=== PATIENT | male | born 1950 | race Caucasian/White ===

== ENCOUNTER → 2020-10-18 | Outpatient (CLI) | payer MEDICARE | LOC: M LABSMTC 09:38 | DX: Z01.812 Encounter for preprocedural laboratory examination (principal); Z20.822 Contact with and (suspected) exposure to COVID-19 ==

== ENCOUNTER 2022-10-31 21:25 | Inpatient (IN) | payer MEDICARE ==
[~2022-10-31] VITALS: Ht 185.4 cm; Wt 120.3 kg
[2022-10-31] MEDS ORDERED: KETOROLAC 30 MG/ML 1ML VIAL IV ONE (22:20)
[2022-10-31] MEDS ORDERED: ONDANSETRON 4MG 2ML VIAL IV ONE (22:20)
[2022-10-31] MEDS ORDERED: ACETAMINOPHEN 325 MG TAB PO ONE (22:20)
[2022-10-31] MEDS ORDERED: ISOVUE-370 76% 100ML VIAL As Ordered ONE (22:39)
[2022-10-31 22:47] LABS: BASO % 0.2 % (0.0-1.0); EOS % 0.2 % (0.0-3.0); HEMATOCRIT 35.5 % (42.0-52.0); HEMOGLOBIN 12.7 g/dl (13.5-17.5); LYMPH % 7.7 % (24.0-44.0); MEAN CORPUSCULAR HEMOGLOBIN 32.1 pg (27.0-33.0); MEAN CORPUSCULAR HGB CONC 35.8 g/dl (32.0-36.5); MEAN CORPUSCULAR VOLUME 89.6 fl (80.0-96.0); MONO # 1.1 10^3/uL (0.0-0.8); MONO % 8.4 % (2.0-8.0); NEUTROPHILS # 10.4 10^3/uL (1.5-8.5); PLATELET COUNT, AUTOMATED 223 10^3/uL (150-450); RED BLOOD COUNT 3.96 10^6/uL (4.30-6.10); WHITE BLOOD COUNT 12.5 10^3/uL (4.0-10.0)
[2022-10-31 23:04] LABS: INR 1.04; PROTHROMBIN TIME 13.8 SECONDS (12.5-14.5)
[2022-10-31 23:05] LABS: CK-MB VALUE MASS < 1.0 NG/ML (<3.6)
[2022-10-31 23:06] LABS: LIPASE 23 U/L (12-53)
[2022-10-31 23:07] LABS: AMYLASE 45 U/L (30-118); CPK CREATINE PHOSPHOKINASE 146 U/L (46-171); MB/CK RELATIVE INDEX 0.68 (< OR =4)
[2022-10-31 23:08] LABS: ALBUMIN 3.5 G/DL (3.2-5.2); ALKALINE PHOSPHATASE 58 U/L (46-116); ALT/SGPT 19 U/L (7.0-40); AST/SGOT 13 U/L (<34); BILIRUBIN,DIRECT 0.4 MG/DL (<0.4); BILIRUBIN,TOTAL 1.2 MG/DL (0.3-1.2); BLOOD UREA NITROGEN 21 MG/DL (9-23); CALCIUM LEVEL 7.4 MG/DL (8.3-10.6); CARBON DIOXIDE LEVEL 22 MMOL/L (20-31); CHLORIDE LEVEL 102 MMOL/L (98-107); CREATININE FOR GFR 1.33 MG/DL (0.70-1.30); GLOMERULAR FILTRATION RATE 56.4 (>42); GLUCOSE, FASTING 105 MG/DL (74-106); POTASSIUM SERUM 3.9 MMOL/L (3.5-5.1); SODIUM LEVEL 133 MMOL/L (136-145); TOTAL PROTEIN 6.4 G/DL (5.7-8.2)
[2022-10-31] MEDS ORDERED: MORPHINE 4 MG/ML 1ML VIAL IV ONE (23:25)
[2022-11-01] VITALS (11 sets, daily range): BP systolic 106–139; BP diastolic 60–81; TEMP 97.3–98.2; O2SAT 90–97
[2022-11-01] MEDS ORDERED: PIPERACILLIN/TAZOBACTAM SOD 4.5 GM in D5W MINI-BAG PLUS 50 ML IV ONE (00:05)
[2022-11-01] MEDS ORDERED: NS 1,000 ML IV ONE (00:05)
[2022-11-01] MEDS ORDERED: LR 1,000 ML IV SCH ×2 (01:25→10:55)
[2022-11-01] MEDS ORDERED: MORPHINE 4 MG/ML 1ML VIAL IV PRN (01:25)
[2022-11-01] MEDS ORDERED: ACETAMINOPHEN TAB 650MG DOSE (2X325MG) PO PRN (01:25)
[2022-11-01] MEDS ORDERED: ONDANSETRON 4MG 2ML VIAL IV PRN ×2 (01:25→10:55)
[2022-11-01] MEDS ORDERED: PERCOCET 5MG/325MG TAB PO PRN ×2 (01:25→10:50)
[2022-11-01] MEDS ORDERED: CITRTAB18 PO (02:21)
[2022-11-01] MEDS ORDERED: CHEL50TA2 PO (02:21)
[2022-11-01] MEDS ORDERED: TAMS1CAP17 PO (02:21)
[2022-11-01] MEDS ORDERED: ROCA0.5C PO (02:21)
[2022-11-01] MEDS ORDERED: VITA-158 PO (02:21)
[2022-11-01] MEDS ORDERED: OCUVTAB PO (02:21)
[2022-11-01] MEDS ORDERED: CALC1CAP PO (02:21)
[2022-11-01] MEDS ORDERED: LEVO200T4 PO (02:21)
[2022-11-01] MEDS ORDERED: ESSE250T PO (02:21)
[2022-11-01] MEDS ORDERED: FINA5TAB2 PO (02:21)
[2022-11-01] MEDS ORDERED: HOME MED LIST COMPLETE! XX SCH (02:25)
[2022-11-01] MEDS: PIPERACILLIN/TAZOBACTAM SOD 3.375 GM in D5W MINI-BAG PLUS 50 ML IV SCH ×4 (05:27→23:34)
[2022-11-01] MEDS ORDERED: ROCURONIUM BROMIDE 50MG/5ML VIAL As Ordered ONE (08:57)
[2022-11-01] MEDS ORDERED: propofoL 200 MG/20 ML VIAL As Ordered ONE (08:57)
[2022-11-01] MEDS ORDERED: LIDOCAINE 1% SDV 30ML VIAL As Ordered ONE (08:57)
[2022-11-01] MEDS ORDERED: LIDOCAINE 2% 100MG/5ML SDV (FOR ANES.) As Ordered ONE (08:57)
[2022-11-01] MEDS ORDERED: MIDAZOLAM INJ 2MG/2ML VIAL As Ordered ONE (08:58)
[2022-11-01] MEDS ORDERED: fentaNYL 100 MCG/2 ML INJECTION As Ordered ONE ×2 (08:58→10:08)
[2022-11-01] MEDS ORDERED: ONDANSETRON 4MG 2ML VIAL As Ordered ONE (09:29)
[2022-11-01] MEDS ORDERED: ACETAMINOPHEN 1000MG 100ML IV BAG As Ordered ONE (09:32)
[2022-11-01] MEDS ORDERED: SUGAMMADEX SODIUM 500 MG/5 ML VIAL (BRIDION) As Ordered ONE (09:59)
[2022-11-01] MEDS ORDERED: oxyCODONE 5MG TAB PO PRN (10:55)
[2022-11-01] MEDS ORDERED: fentaNYL 100 MCG/2 ML INJECTION IV PRN (10:55)
[2022-11-01] MEDS ORDERED: METOCLOPRAMIDE INJ 10MG/2ML VIAL IV PRN (10:55)
[2022-11-01] MEDS: ASCORBIC ACID 500 MG TAB PO SCH (12:05)
[2022-11-01] MEDS: LEVOTHYROXINE 100MCG TABLET (0.1MG) PO SCH (12:05)
[2022-11-01] MEDS: OCUVITE 1 TAB PO SCH (12:05)
[2022-11-01] MEDS: CALCITRIOL 0.25 MCG CAP (S0169) PO SCH (20:32)
[2022-11-01] MEDS ORDERED: CALCIUM ACETATE 667MG GELCAP PO SCH (21:00)
[2022-11-01] MEDS ORDERED: FINASTERIDE 5MG TAB PO SCH (21:00)
[2022-11-01] MEDS ORDERED: TAMSULOSIN 0.4 MG CAP PO SCH (21:00)
[2022-11-02 01:03] VITALS: BP 138/80; TEMP 98.4; O2SAT 90
[2022-11-02] MEDS: PIPERACILLIN/TAZOBACTAM SOD 3.375 GM in D5W MINI-BAG PLUS 50 ML IV SCH ×2 (05:33→11:00)
[2022-11-02] MEDS: LEVOTHYROXINE 100MCG TABLET (0.1MG) PO SCH (05:33)
[2022-11-02 05:38] VITALS: BP 138/76; TEMP 98.1; O2SAT 92
[2022-11-02 05:57] LABS: BASO % 0.1 % (0.0-1.0); HEMATOCRIT 32.7 % (42.0-52.0); LYMPH # 0.7 10^3/uL (1.5-5.0); LYMPH % 5.4 % (24.0-44.0); MEAN CORPUSCULAR HEMOGLOBIN 31.3 pg (27.0-33.0); MEAN CORPUSCULAR HGB CONC 33.6 g/dl (32.0-36.5); MEAN CORPUSCULAR VOLUME 93.2 fl (80.0-96.0); MONO # 0.6 10^3/uL (0.0-0.8); MONO % 4.7 % (2.0-8.0); NEUTROPHILS # 10.8 10^3/uL (1.5-8.5); NEUTROPHILS % 89.1 % (36.0-66.0); PLATELET COUNT, AUTOMATED 196 10^3/uL (150-450); RED BLOOD COUNT 3.51 10^6/uL (4.30-6.10); WHITE BLOOD COUNT 12.2 10^3/uL (4.0-10.0)
[2022-11-02 06:28] LABS: CREATININE FOR GFR 1.42 MG/DL (0.70-1.30); GLOMERULAR FILTRATION RATE 52.3 (>42)
[2022-11-02] MEDS: ASCORBIC ACID 500 MG TAB PO SCH (08:07)
[2022-11-02] MEDS: OCUVITE 1 TAB PO SCH (08:07)
[2022-11-02] MEDS: CALCITRIOL 0.25 MCG CAP (S0169) PO SCH (08:07)
[2022-11-02 10:00] VITALS: BP 131/73; TEMP 98.4; O2SAT 93
[2022-11-02] MEDS ORDERED: AMOX500T2 PO (11:15)
[2022-11-02] MEDS ORDERED: PERCOCET PO (11:15)
== END 2022-11-02 12:00 | disposition home or self-care (01) | DRG 343 ==
LOC: M ED 21:25 → M ED INP 11-01 01:24 → M MSPAV 11-01 03:55
PROVIDERS: ADMIT Surgery; ATTEND Surgery
PROC: 0DTJ4ZZ Resection of Appendix, Percutaneous Endoscopic Approach (ICD-10-PCS; principal; 2022-11-01 10:00)
DX: K35.80 Unspecified acute appendicitis (principal); E03.9 Hypothyroidism, unspecified; M19.90 Unspecified osteoarthritis, unspecified site; Z79.890 Hormone replacement therapy; Z79.899 Other long term (current) drug therapy; Z20.822 Contact with and (suspected) exposure to COVID-19

== ENCOUNTER → 2023-06-25 | Outpatient (CLI) | payer MEDICARE ==
[~2023-06-25] MED LIST: AMOX500T2 PO; CALC1CAP PO; CHEL50TA2 PO; CITRTAB18 PO; E-Z-GAS II EFFERVESCENT PACKET (SODIUM BICARB./CITRIC ACID/SIMETHICONE) As Ordered ONE; E-Z-HD 98% w/w 340GM SUSP BTL As Ordered ONE; E-Z-PAQUE 96% w/w SUSP 176GM BTL As Ordered ONE; ESSE250T PO; FINA5TAB2 PO; LEVO200T4 PO; OCUVTAB PO; PERCOCET PO; ROCA0.5C PO; TAMS1CAP17 PO; VITA-158 PO
== END ==
LOC: M RAD 08:38
PROVIDERS: ATTEND Nurse Practitioner Family
DX: R12 Heartburn (principal); K22.4 Dyskinesia of esophagus; K44.9 Diaphragmatic hernia without obstruction or gangrene

== ENCOUNTER → 2023-10-21 | Outpatient (CLI) | payer MEDICARE ==
[~2023-10-21] MED LIST changes: -E-Z-GAS II EFFERVESCENT PACKET (SODIUM BICARB./CITRIC ACID/SIMETHICONE) As Ordered ONE; -E-Z-HD 98% w/w 340GM SUSP BTL As Ordered ONE; -E-Z-PAQUE 96% w/w SUSP 176GM BTL As Ordered ONE
[2023-10-21 11:45] LABS: CALCIUM LEVEL 10.2 MG/DL (8.3-10.6); CREATININE FOR GFR 1.31 MG/DL (0.70-1.30); GLOMERULAR FILTRATION RATE 57.3 (>42); POTASSIUM SERUM 4.5 MMOL/L (3.5-5.1)
[2023-11-02 13:08] LABS: PROSTATIC SPECIFIC AG MONITOR 0.93 NG/ML (< 4.00)
== END ==
LOC: M LAB 10:03
PROVIDERS: ATTEND Urology
DX: N40.1 Benign prostatic hyperplasia with lower urinary tract symptoms (principal)

== ENCOUNTER → 2023-11-17 | Outpatient (REF) | payer MEDICARE ==
[2023-11-17 17:43] LABS: PHOSPHORUS LEVEL 4.3 MG/DL (2.4-5.1)
[2023-11-17 19:14] LABS: PTH INTACT < 6.3 PG/ML (18.5-88.0)
== END ==
LOC: M LAB REF 16:32
PROVIDERS: ATTEND Internal Medicine
DX: E21.5 Disorder of parathyroid gland, unspecified (principal)

== ENCOUNTER → 2024-03-18 | Outpatient (CLI) | payer MEDICARE ==
[2024-03-18 12:42] LABS: CREATININE FOR GFR 1.46 MG/DL (0.70-1.30); GLOMERULAR FILTRATION RATE 50.5 (>42); POTASSIUM SERUM 4.4 MMOL/L (3.5-5.1)
== END ==
LOC: M LAB 11:41
PROVIDERS: ATTEND Internal Medicine Endocrinology, Diabetes & Metabolism
DX: E83.52 Hypercalcemia (principal)

== ENCOUNTER → 2024-05-20 | Outpatient (REF) | payer MEDICARE ==
[2024-05-20 13:44] LABS: PTH INTACT < 6.3 PG/ML (18.5-88.0)
== END ==
LOC: M LAB REF 12:33
PROVIDERS: ATTEND Internal Medicine
DX: E21.5 Disorder of parathyroid gland, unspecified (principal)

== ENCOUNTER → 2024-08-29 | Outpatient (REF) | payer MEDICARE | LOC: M LAB REF 17:19 | PROVIDERS: ATTEND Internal Medicine | DX: E20.9 Hypoparathyroidism, unspecified (principal) ==

== ENCOUNTER → 2024-12-21 | Outpatient (REF) | payer MEDICARE ==
[~2024-12-21] MED LIST changes: -ESSE250T PO; +MAGN250T17 PO
[2024-12-21 14:56] LABS: IRON (FE) 71.0 UG/DL (65-175); PERCENT SATURATION 26.7 % (19.7-50.0)
== END ==
LOC: M LAB REF 14:35
PROVIDERS: ATTEND Internal Medicine
DX: Z01.818 Encounter for other preprocedural examination (principal); M25.569 Pain in unspecified knee; M17.11 Unilateral primary osteoarthritis, right knee

== ENCOUNTER → 2025-03-10 | Outpatient (CLI) | payer MEDICARE ==
[~2025-03-10] MED LIST changes: +ISOVUE-370 76% 100 ML VIAL As Ordered ONE
== END ==
LOC: M RAD 09:22
PROVIDERS: ATTEND Otolaryngology
DX: D11.0 Benign neoplasm of parotid gland (principal); M47.812 Spondylosis without myelopathy or radiculopathy, cervical region
CPT/HCPCS: 70491; 82565; Q9967

== ENCOUNTER → 2025-03-22 | Outpatient (REF) | payer MEDICARE ==
[~2025-03-22] MED LIST changes: -ISOVUE-370 76% 100 ML VIAL As Ordered ONE
[2025-03-22 17:08] LABS: PHOSPHORUS LEVEL 4.9 MG/DL (2.4-5.1)
[2025-03-22 17:14] LABS: TOTAL T3 86.6 NG/DL (60.0-181.0)
[2025-03-22 17:15] LABS: THYROGLOBULIN ANTIBODY 28.0 U/ML (<60.0)
== END ==
LOC: M LAB REF 14:32
PROVIDERS: ATTEND Internal Medicine
DX: C73 Malignant neoplasm of thyroid gland (principal); E89.0 Postprocedural hypothyroidism

== ENCOUNTER → 2025-04-11 | Outpatient (CLI) | payer MEDICARE ==
[~2025-04-11] MED LIST changes: +LIDOCAINE 1% MDV 20 ML VIAL IM ONE
[2025-04-11 07:55] VITALS: BP 141/80; TEMP 98.2; O2SAT 99
== END ==
LOC: M IRPRO 07:36
PROVIDERS: ATTEND Otolaryngology
DX: D11.0 Benign neoplasm of parotid gland (principal)

== ENCOUNTER 2025-05-08 06:13 | Day surgery (SDC) | payer MEDICARE ==
[~2025-05-08] VITALS: Ht 185.4 cm; Wt 109.3 kg
[~2025-05-08 06:13] MED LIST changes: +CALC0.5C6 PO; +IPRA6SP INH; -LIDOCAINE 1% MDV 20 ML VIAL IM ONE
[2025-05-08] MEDS: LR 1,000 ML IV SCH (06:47)
[2025-05-08] MEDS ORDERED: dexmedeTOMIDine (4 MCG/ML) 200 MCG/50 ML BTL As Ordered ONE (07:20)
[2025-05-08] MEDS ORDERED: LIDOCAINE 2% 100 MG/5 ML SDV (FOR ANES.) As Ordered ONE (07:20)
[2025-05-08] MEDS ORDERED: ONDANSETRON 4MG/2ML VIAL As Ordered ONE (07:20)
[2025-05-08] MEDS ORDERED: dexAMETHasone 4 MG/ML 1 ML VIAL As Ordered ONE (07:20)
[2025-05-08] MEDS ORDERED: ROCURONIUM BROMIDE 50MG/5ML VIAL As Ordered ONE (07:20)
[2025-05-08] MEDS ORDERED: MIDAZOLAM INJ 2 MG/2 ML VIAL As Ordered ONE (07:21)
[2025-05-08] MEDS ORDERED: LACRILUBE (AKWA TEARS) OPHTH OINT 3.5 GM As Ordered ONE (08:15)
[2025-05-08] MEDS ORDERED: ACETAMINOPHEN 1000MG/100ML IV BAG As Ordered ONE (08:15)
[2025-05-08] MEDS ORDERED: SUGAMMADEX SODIUM 200 MG/2 ML VIAL As Ordered ONE (08:15)
[2025-05-08] MEDS: LIDOCAINE W/EPINEPHrine 1% 20 ML VIAL As Ordered ONE (08:23)
[2025-05-08] MEDS ORDERED: HYDROmorphone HCL 2 MG/ML 1 ML VIAL As Ordered ONE (08:55)
[2025-05-08] MEDS ORDERED: HYDROMORPHONE HCL 0.5 MG/0.5 ML SYRINGE IV PRN (09:55)
[2025-05-08] MEDS ORDERED: MORPHINE 2 MG/ML 1 ML VIAL IV PRN (09:55)
[2025-05-08] MEDS ORDERED: KETOROLAC 30 MG/ML 1 ML VIAL As Ordered ONE (09:58)
[2025-05-08 12:10] VITALS: BP 133/75; TEMP 97.1; O2SAT 96
== END 2025-05-08 12:15 | disposition home or self-care (01) ==
LOC: M SDC 06:13
PROVIDERS: ATTEND Otolaryngology
DX: C07 Malignant neoplasm of parotid gland (principal); E89.0 Postprocedural hypothyroidism; N40.0 Benign prostatic hyperplasia without lower urinary tract symptoms; K21.9 Gastro-esophageal reflux disease without esophagitis; Z79.899 Other long term (current) drug therapy; Z79.890 Hormone replacement therapy; Z90.49 Acquired absence of other specified parts of digestive tract
CPT/HCPCS: 42415; 88305; J0131; J1100; J1171; J1885; J2250; J2405; J3010